=== PATIENT | female | born 1940 | race Caucasian/White ===

== ENCOUNTER 2021-01-04 16:52 | Inpatient (IN) | payer MEDICARE, OTHER, SELFPAY ==
--- NOTE | 2021-01-04 | CTR_ITS ---
PROCEDURE INFORMATION: Exam: CT Head Without Contrast Exam date and time: 01/04/2021 5:58 PM Age: 80 years old Clinical indication: Injury or trauma; Fall; Blunt trauma (contusions or hematomas) TECHNIQUE: Imaging protocol: Computed tomography of the head without contrast. Total images: 189 Radiation optimization: All CT scans at this facility use at least one of these dose optimization techniques: automated exposure control; mA and/or kV adjustment per patient size (includes targeted exams where dose is matched to clinical indication); or iterative reconstruction. COMPARISON: No relevant prior studies available. RADIATION DOSE METRICS: Total DLP (mGy-cm): 776.75 FINDINGS: Brain: No evidence of active or acute intracranial pathologic process, hemorrhage, or trauma. No visible cerebral edema. No mass effect. No midline shift. Cerebral and cerebellar atrophy with ventricular dilatation slightly greater than that anticipated for patient's chronological age. Mild small vessel ischemic disease with senile periventricular leukomalacia. Cerebral ventricles: No ventriculomegaly. Bones/joints: Unremarkable. No acute fracture. Paranasal sinuses: Visualized sinuses are unremarkable. No fluid levels. Mastoid air cells: Visualized mastoid air cells are well aerated. Soft tissues: Unremarkable. CT/CT head wo con* [id number] IMPRESSION: No evidence of active or acute intracranial pathologic process, hemorrhage, or trauma. Radiation Dose CTDIVOL = (mGy): DLP = 776.75 (mGy-cm)
[2021-01-04 17:11] VITALS: BP 145/75; PULSE 94; RESP 16; TEMP 36.8; O2SAT 92; BMI 30.5
[2021-01-04 17:22] VITALS: BP 145/75; PULSE 72; RESP 16; O2SAT 97
--- NOTE | 2021-01-04 17:28 | CTR_ITS ---
PROCEDURE INFORMATION: Exam: CT Maxillofacial Without Contrast Exam date and time: 01/04/2021 5:36 PM Age: 80 years old Clinical indication: Injury or trauma; Fall; Blunt trauma (contusions or hematomas); Nose TECHNIQUE: Imaging protocol: Computed tomography images of the face without contrast. Total images: 257 Radiation optimization: All CT scans at this facility use at least one of these dose optimization techniques: automated exposure control; mA and/or kV adjustment per patient size (includes targeted exams where dose is matched to clinical indication); or iterative reconstruction. COMPARISON: No relevant prior studies available. RADIATION DOSE METRICS: Total DLP (mGy-cm): 703.9 FINDINGS: Orbital cavity: Orbits are normal. Globes are unremarkable. No visible orbital trauma. Bones/joints: No visible facial bone fracture. No visible nasal fracture. 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 Paranasal sinuses: Normal. No air-fluid levels. Soft tissues: Unremarkable. CT/CT facial bones wo con* [id number] IMPRESSION: No acute findings. Radiation Dose CTDIVOL = (mGy): DLP = 703.9 (mGy-cm)
--- NOTE | 2021-01-04 17:28 | XRR_ITS ---
PROCEDURE INFORMATION: Exam: XR Left Elbow Exam date and time: 01/04/2021 5:38 PM Age: 80 years old Clinical indication: Injury or trauma; Fall; Blunt trauma (contusions or hematomas); Elbow; Left TECHNIQUE: Imaging protocol: XR Left elbow. Views: 3 or more views. Total images: 3 COMPARISON: No relevant prior studies available. FINDINGS: Bones/joints: Anterior displaced supracondylar fracture distal left humerus. Maximum anterior displacement 14 mm. No impaction. Associated joint effusion. Moderate primary osteoarthritis. Osteopenia/osteoporosis. Soft tissues: Soft tissue swelling. No visible soft tissue emphysema or radiopaque foreign body. XR/XR elbow LT min 3V* [id number] IMPRESSION: Anterior displaced supracondylar fracture distal left humerus.
--- NOTE | 2021-01-04 17:30 | ED_ITS ---
HPI - Fall General: Chief Complaint: Fall Stated Complaint: FALL, FACE & ELBOW INJURY Time Seen by Provider: 01/04/21 17:25 Source: patient Mode of arrival: ambulatory Limitations: no limitations History of Present Illness: MD complaint: fall Onset (ago): hour(s) (3) Fall from: standing (Unloading groceries) Fall witnessed: no Place fall occurred: home Loss of consciousness: None Prolonged down time: no Symptoms prior to fall: none Context: tripped/slipped (Tripped on dog leash) Location of injury: face (Small laceration to the bridge of nose bruising present) Location of injury - extremities: Left: elbow (Hematoma/tenderness) Severity: mild Associated symptoms-after fall: Reports no associated symptoms Review of Systems General: Reports: 10 or more systems reviewed and unremarkable except in HPI and below Musc: Reports: extremity pain and extremity swelling Skin/Breast: Reports: new lesions Physical Exam Const: COMMON NORMALS: no acute distress, patient oriented x3, healthy appearing, alert and well nourished GENERAL APPEARANCE: cooperative, comfortable and well kempt HENMT: COMMON NORMALS: hearing grossly normal bilaterally and Normal nasal mucous membranes and turbinates present HEAD & SCALP: normal to inspection HEAD IMAGES: 1. Bruising and laceration present NOSE: Normal nares present and Normal nasal mucous membranes and turbinates present Eye: COMMON NORMALS: Equal, round and reactive pupils present GENERAL EYE: appearance normal, both eyes and all related structures PUPIL: Yes Equal, round and reactive pupils present Neck/C-Spine: COMMON NORMALS: full ROM GENERAL: Yes normal visual inspection Lymph: LYMPHATIC: no lymphadenopathy noted Resp: COMMON NORMALS: normal respiratory effort, No retractions, No use of accessory muscles and clear to auscultation bilaterally AUSCULTATION: clear to auscultation bilaterally Cardio: COMMON NORMALS: regular rhythm, S1 normal heart sound present and S2 normal heart sound present RHYTHM: regular rhythm HEART SOUNDS: S1 normal heart sound present and S2 normal heart sound present GI: COMMON NORMALS: Normal to inspection, nondistended, normoactive bowel sounds present : COMMON NORMALS: Yes no CVA tenderness BLADDER/KIDNEY EXAM: Yes no CVA tenderness Back/Pelvis: COMMON NORMALS: no CVA tenderness, thoracic and lumbar spine normal to inspection and no thoracic nor lumbar tenderness Extremity: GENERAL: Yes normal exam except as noted LEFT UPPER EXTREMITY: Yes elbow joint Left elbow: Yes inspection (Bruising) and Yes ROM (Limited due to pain) Neuro: COMMON NORMALS: patient oriented x3 SENSORIUM/ORIENTATION: Yes alert Psych: COMMON NORMALS: mental status grossly normal APPEARANCE: Yes well kempt Skin: TRAUMA: laceration (Bridge of nose) linear Course ED course: Unloading groceries from the car patient states dog was on a leash, and tripped. Landed with elbow extended. Laceration present on bridge of nose, bleeding controlled. Plan for CT c-spine, and facial bones, with XR-Lt elbow. Reevaluation(s): Reevaluation #1: Neurologically intact, patient has no complaint of pain at this time. Discussed pain management with her and she does not wish to take anything at this time. Plan to admit to hospitalist. Time: 19:01 Reevaluation #2: Laceration of nose repaired with dermabond. Site was cleansed and irrigated prior to repair. Time: 19:21 Vital Signs: Vital signs: Vital Signs Temperature 98.2 F 01/04/21 17:11 Pulse Rate 72 01/04/21 17:22 Respiratory Rate 16 01/04/21 17:22 Blood Pressure 145/75 01/04/21 17:22 Pulse Oximetry 97 01/04/21 17:22 MDM - Fall MDM Narrative: Medical decision making narrative: Discussed Xray results with Will admit to Hospitalist with plans to surgically repair. Imaging Data^: Xray Ortho: Attestation: I personally reviewed and interpreted this imaging study as follows: Radiologist's impression: Anterior displaced supracondylar fracture distal left humerus. Discharge Plan Discharge Patient Disposition: Admitted As Inpatient Clinical Impression: Supracondylar fracture of left humerus Qualifiers: Encounter type: initial encounter Fracture type: closed Qualified Code(s): S42.412A - Displaced simple supracondylar fracture without intercondylar fra cture of left humerus, initial encounter for closed fracture Condition: Stable Coding Level of Care Code ED Discharge Specialist for Zeyad Fwbinu Exam Comprehensive
--- NOTE | 2021-01-04 17:34 | CTR_ITS ---
PROCEDURE INFORMATION: Exam: CT Cervical Spine Without Contrast Exam date and time: 01/04/2021 5:36 PM Age: 80 years old Clinical indication: Injury or trauma; Fall; Blunt trauma TECHNIQUE: Imaging protocol: Computed tomography images of the cervical spine without contrast. Total images: 273 Radiation optimization: All CT scans at this facility use at least one of these dose optimization techniques: automated exposure control; mA and/or kV adjustment per patient size (includes targeted exams where dose is matched to clinical indication); or iterative reconstruction. COMPARISON: No relevant prior studies available. RADIATION DOSE METRICS: Total DLP (mGy-cm): 343.69 FINDINGS: Bones/joints: No acute fracture. Marked facet arthrosis. Degenerative disease with spondylosis deformans C5, C6, and to a less significant degree C7. Discs/Spinal canal/Neural foramina: No significant disc protrusion. No severe spinal canal stenosis. Right neural foraminal narrowing C4/C5 secondary to facet arthrosis. Left neural foraminal stenosis C5/C6. Lungs: Lung apices are normal. Soft tissues: Unremarkable for age. CT/CT cervical spin wo con* [id number] IMPRESSION: No acute findings. Radiation Dose CTDIVOL = (mGy): DLP = 343.69 (mGy-cm)
--- NOTE | 2021-01-04 18:49 | ECG_ITS ---
[facility] ED Test Date: 2021-01-04 Pat Name: Christianne Oliva Department: Room: 250 Gender: Female [employer]: : 1940 Requested By: Jamaal Vazquez Order Number: [id number] Shekhar MD: Swapna Erickson M.D. Measurements Intervals [place] Rate: 85 P: 26 AL: 162 QRS: -35 QRSD: 156 T: 51 QT: 399 QTc: 476 Interpretive Statements SINUS RHYTHM MARKED LEFT AXIS DEVIATION [QRS AXIS < -30] LEFT BUNDLE BRANCH BLOCK [120+ ms QRS DURATION, 80+ ms Q/S IN V1/V2, 85+ ms R IN I/aVL/V5/V6] No previous ECG available for comparison Electronically Signed On 01-10-2021 6:58:53 CDT by Swapna Erickson M.D. [id number]
--- NOTE | 2021-01-04 18:49 | XRR_ITS ---
PROCEDURE INFORMATION: Exam: XR Chest Exam date and time: 01/04/2021 6:51 PM Age: 80 years old Clinical indication: Injury or trauma; Fall; Blunt trauma (contusions or hematomas) TECHNIQUE: Imaging protocol: XR of the chest. Views: 1 view. Total images: 1 COMPARISON: No relevant prior studies available. FINDINGS: Lungs: Minimal dependent atelectasis left lung base. Pleural spaces: Unremarkable. No pleural effusion. No pneumothorax. Heart/Mediastinum: Cardiac structures and configuration unremarkable for age. Mild arteriosclerosis. Bones/joints: Unremarkable as visualized. XR/XR chest 1V portable [id number] IMPRESSION: Minimal dependent atelectasis left lung base.
[2021-01-04 20:59] VITALS: BP 132/63; PULSE 85; RESP 18; TEMP 36.9; O2SAT 91
[2021-01-04 21:09] LABS: Basophils # 0.1 10^3/uL (0.0-0.1); Basophils % 0.4 %; Eosinophils % 0.3 %; Hematocrit 36.2 % (37.0-47.0); Hemoglobin 11.6 g/dL (11.5-15.3); Lymphocytes # 1.6 10^3/uL (0.8-4.8); Lymphocytes % 13.6 %; Mean Corpuscular Hemoglobin 29.2 pg (28.0-34.0); Mean Corpuscular Volume 91.2 fL (81-99); Mean Platelet Volume 9.8 fL (7.4-10.4); Monocytes # 0.6 10^3/uL (0.2-0.9); Monocytes % 4.8 %; Neutrophils # 9.42 10^3/uL (1.8-7.7); Neutrophils % 80.4 %; Nucleated Red Blood Cells % 0 %; Platelet Count 249 10^3/cmm (130-400); Red Blood Count 3.97 10^6/uL (4.1-5.3); Red Cell Distribution Width 13.7 % (12.1-15.1); White Blood Count 11.7 10^3/uL (4.0-10.0)
[2021-01-04 21:26] LABS: Alanine Aminotransferase 27 U/L (0-33); Albumin Level 4.2 g/dL (3.5-5.2); Alkaline Phosphatase 52 IU/L (35-105); Anion Gap 14.3 (5-19); Aspartate Amino Transferase 34 U/L (0-32); Blood Urea Nitrogen 18 mg/dL (8-23); Calcium 8.7 mg/dL (8.5-10.5); Carbon Dioxide 26 mmol/L (22-29); Chloride 100 mmol/L (98-107); Globulin 2.9 g/dL (1.3-4.6); Glucose 145 mg/dL (65-115); Osmolality Calculated 286 mOsm/kg (285-295); Potassium 4.3 mmol/L (3.5-5.1); Sodium 136 mmol/L (136-145); Total Bilirubin 0.2 mg/dL (0.15-1.2); Total Protein 7.1 g/dL (6.6-8.7)
[2021-01-04 21:41] LABS: INR 0.98 (0.8-1.2)
--- NOTE | 2021-01-04 22:24 | P.HP_ITS ---
Providers/Chief Complaint Admitting Physician: Yane Boone MD Chief Complaint: FALL, FACE & ELBOW INJURY History of Present Illness Christianne Oliva is a 80 year old female with a PMH HTN who presented with a mechanical fall at home after tripping over her dog leash and landing on concrete floor. Thereafter had nose bleed and pain and inability to move her left arm. Evalutaion in the ER revealed Anterior displaced supracondylar fr acture distal left humerus. no acute fractures of the face, skull or C spine. no rib fracture noted on CXR. Patient is currently in pain,. rates 5/10 in the left arm. No other complaints at this time. ROS negative for fever, chest pain, dyspnea, palpitations, syncope. Review of Systems General: Reports: 10 or more systems reviewed and unremarkable except in HPI and below Const: Denies: fever(s), chills or body aches Eyes: Denies: change in vision, blurry vision or photophobia ENMT: Reports: hoarseness; Denies: throat pain, enlarged tonsils, odynophagia or nasal congestion Card: Denies: chest pain, palpitations, irregular heart rhythm, edema, swelling of feet/ankles, lightheadedness, pre-syncope, dyspnea on exertion or orthopnea Resp: Denies: dyspnea, productive cough, non-productive cough, wheezing, stridor, pain on inspiration, change in phlegm color, hemoptysis or chest congestion GI: Denies: abdominal pain, nausea, vomiting, hematemesis, coffee ground emesis, dysphagia, heartburn, diarrhea, constipation, GI cramping, change in stool character, hematochezia or melena : Denies: flank pain, difficulty voiding, dysuria, urinary frequency, urinary urgency, urinary hesitancy or hematuria Musc: Denies: neck pain, back pain, extremity pain, joint swelling, joint warmth or deformity Neuro: Denies: headache(s), numbness in extremities, weakness in extremities, sensory changes, difficulty walking, frequent falls, dizziness, vertigo, behavioral changes, Slurred speech present or seizure-like activity Psych: Denies: anxiety, depression, suicidal ideation or homicidal ideation Endo: Denies: polyuria, polydipsia, tired all the time, cold intolerance or hot flashes Simón/Lymph: Denies: easy bruising or easy bleeding Medications/Allergies Home Medications Medication Instructions Recorded Confirmed Last Taken Type Bioperine 10 mg PO DAILY@1500 01/04/21 01/04/21 01/04/21 History Curcu Gel Ultra 650 mg PO DAILY@1500 01/04/21 01/04/21 01/04/21 History Vagifem See Rx Instructions .ROUTE .COMPLEX 01/04/21 01/04/21 01/03/21 History Vitamin C 1,000 mg PO DAILY@1500 01/04/21 01/04/21 01/04/21 History aspirin [Cong Chewable Aspirin] 81 mg PO DAILY@1500 01/04/21 01/04/21 01/04/21 History biotin 5,000 mcg PO DAILY@1500 01/04/21 01/04/21 01/04/21 History calcium carbonate-vitamin D3 1 tab PO DAILY@1500 01/04/21 01/04/21 01/04/21 History [Caltrate 600 plus D] cholecalciferol (vitamin D3) 125 mcg PO DAILY@1500 01/04/21 01/04/21 01/04/21 History [Vitamin D3] fexofenadine [Carla] 180 mg PO DAILY@1500 01/04/21 01/04/21 01/04/21 History glucosamine-chondroitin [Osteo 1 tab PO DAILY@1500 01/04/21 01/04/21 01/04/21 History Bi-Flex] hydrochlorothiazide 12.5 mg PO DAILY@1500 01/04/21 01/04/21 01/04/21 History metoprolol tartrate 25 mg PO BID@1500,2200 01/04/21 01/04/21 01/04/21 History wbqjxzcg-gbz-lzzq-FA-lutein 1 tab PO DAILY@1500 01/04/21 01/04/21 01/04/21 History [Centrum Silver Women] omega 8-xip-xyr-fish oil [Fish Oil] 1 cap PO DAILY@1500 01/04/21 01/04/21 01/04/21 History omeprazole magnesium [Prilosec OTC] 20 mg PO DAILY@0900 01/04/21 01/04/21 01/04/21 History potassium chloride 20 meq PO DAILY@1500 01/04/21 01/04/21 01/04/21 History raloxifene 60 mg PO DAILY@1500 01/04/21 01/04/21 01/04/21 History vitamin K2 100 mcg PO DAILY@1500 01/04/21 01/04/21 01/04/21 History Allergies Allergy/AdvReac Type Severity Reaction Status Date / Time cefaclor [From Ceclor] Allergy Unknown Verified 01/04/21 17:15 cephalexin [From Keflex] Allergy Unknown Verified 01/04/21 17:15 PFSH Acute PFSH: Medical History Hypertension Surgical History History of knee replacement S/P hip replacement Social History Smoking and tobacco status: never smoked Alcohol intake: never Vitals/I&O/Wt Last Vital Signs Temp 98.5 F 01/04/21 20:59 Pulse 85 01/04/21 20:59 Resp 18 01/04/21 20:59 BP 132/63 01/04/21 20:59 Pulse Ox 91 01/04/21 20:59 Weight last 48 hrs Weight 75.75 kg Physical Exam Narrative: EXAM NARRATIVE: General: No acute distress, AO x3 HEENT: PERRLA, pupils bilaterally equal and reactive, pallors not present Chest: Normal vesicular breath sounds, no added sounds, equal good air entry bilaterally CVS: S1-S2 regular, no murmurs, no tachycardia, no gallops, no rubs Abdomen: Soft, nontender, no organomegaly, bowel sounds present Neuro: No focal deficits, no facial deformity, AO x3, power 5/5 in all limbs Extremities: Left arm in sling. restricted ROM at left elbow, hematoma and clotted blood over bridge of nose. Data : 01/04/21 20:45 01/04/21 20:45 A&P Assessment and plan (1) Supracondylar fracture of left humerus: after mechanical fall Orthopedics consult placed from ER NPO for possible surgical intervention in the morning Prn morphine and tramadol for pain management Left arm sling in place Status: Acute Qualifiers: Encounter type: initial encounter Fracture type: closed Qualified Code(s): S42.412A - Displaced simple supracondylar fracture without intercondylar fracture of left humerus, initial encounter for closed fracture (2) Hemorrhage from nose: Now resolved Hold home dose of ASA, states on this for primary prevention, no past h/o CAD Status: Acute (3) Hypertension: Currently well controlled Continue home dose of B blockers and HCTZ Status: Acute Qualifiers: Hypertension type: essential hypertension Qualified Code(s): I10 - Essential (primary) hypertension Additional A&P Information CT head, C spine and face without acute fractures Atelactasis left lung base: Add incetive spirometry Full code DVT ppx: SCD sfor now, hold a/c given nasal bleeding and possible surgical intervention Attestations Medical Necessity Statement*: >2midnight anticipated for surgical intervention, pain control and pre/ post op management for supracondylare fracture Coding Level of Care Code Acute 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
[2021-01-04 23:29] VITALS: BP 137/73; PULSE 82; RESP 16; TEMP 36.8; O2SAT 92
[2021-01-04] MEDS: dextrose 5%-sod chloride 0.9% 1,000 ML 50 ML IV (23:50)
[2021-01-05] VITALS (13 sets, daily range): BP systolic 130–181; BP diastolic 55–90; PULSE 77–114; RESP 16–20; TEMP 36.6–37.2; O2SAT 86–96
[2021-01-05 04:55] LABS: Basophils % 0.3 %; Eosinophils % 0.3 %; Hematocrit 33.7 % (37.0-47.0); Hemoglobin 10.6 g/dL (11.5-15.3); Lymphocytes # 1.6 10^3/uL (0.8-4.8); Mean Corpuscular HGB Conc 31.5 g/dL (30.0-36.0); Mean Corpuscular Hemoglobin 29.3 pg (28.0-34.0); Mean Corpuscular Volume 93.1 fL (81-99); Mean Platelet Volume 9.9 fL (7.4-10.4); Monocytes # 0.7 10^3/uL (0.2-0.9); Monocytes % 9.9 %; Neutrophils # 5.01 10^3/uL (1.8-7.7); Nucleated Red Blood Cells % 0 %; Platelet Count 228 10^3/cmm (130-400); Red Blood Count 3.62 10^6/uL (4.1-5.3); Red Cell Distribution Width 13.9 % (12.1-15.1); White Blood Count 7.4 10^3/uL (4.0-10.0)
[2021-01-05 05:14] LABS: Alanine Aminotransferase 22 U/L (0-33); Albumin Level 3.7 g/dL (3.5-5.2); Alkaline Phosphatase 44 IU/L (35-105); Anion Gap 10.8 (5-19); Aspartate Amino Transferase 31 U/L (0-32); Blood Urea Nitrogen 17 mg/dL (8-23); Calcium 8.5 mg/dL (8.5-10.5); Carbon Dioxide 27 mmol/L (22-29); Chloride 103 mmol/L (98-107); Globulin 2.5 g/dL (1.3-4.6); Glucose 123 mg/dL (65-115); Osmolality Calculated 287 mOsm/kg (285-295); Potassium 3.8 mmol/L (3.5-5.1); Sodium 137 mmol/L (136-145); Total Bilirubin 0.2 mg/dL (0.15-1.2); Total Protein 6.2 g/dL (6.6-8.7)
--- NOTE | 2021-01-05 07:10 | P.CONIM_ITS ---
Providers/Reason For Consult Consulting Physican/Specialty*: hospitalist Reason for Consult*: distal humerus fracture Attending Physician: Yane Boone MD History of Present Illness History of Present Illness Christianne Oliva is a 80 year old female with a PMH HTN who presented with a mechanical fall at home after tripping over her dog leash and landing on concrete floor. Thereafter had nose bleed and pain and inability to move her left arm. Evalutaion in the ER revealed Anterior displaced supracondylar fracture distal left humerus. no acute fractures of the face, skull or C spine. no rib fracture noted on CXR. Patient is currently in pain,. rates 5/10 in the left arm. No other complaints at this time. ROS negative for fever, chest pain, dyspnea, palpitations, syncope. Review of Systems General: Reports: 10 or more systems reviewed and unremarkable except in HPI and below Const: Denies: fever(s), chills or body aches Eyes: Denies: change in vision, blurry vision or photophobia ENMT: Reports: hoarseness; Denies: throat pain, enlarged tonsils, odynophagia or nasal congestion Card: Denies: chest pain, palpitations, irregular heart rhythm, edema, swelling of feet/ankles, lightheadedness, pre-syncope, dyspnea on exertion or orthopnea Resp: Denies: dyspnea, productive cough, non-productive cough, wheezing, stridor, pain on inspiration, change in phlegm color, hemoptysis or chest congestion GI: Denies: abdominal pain, nausea, vomiting, hematemesis, coffee ground emesis, dysphagia, heartburn, diarrhea, constipation, GI cramping, change in stool character, hematochezia or melena : Denies: flank pain, difficulty voiding, dysuria, urinary frequency, urinary urgency, urinary hesitancy or hematuria Musc: Reports: extremity swelling; Denies: neck pain, back pain, extremity pain, joint swelling, joint warmth or deformity Skin/Breast: Reports: new lesions Neuro: Denies: headache(s), numbness in extremities, weakness in extremities, sensory changes, difficulty walking, frequent falls, dizziness, vertigo, behavio ral changes, Slurred speech present or seizure-like activity Psych: Denies: anxiety, depression, suicidal ideation or homicidal ideation Endo: Denies: polyuria, polydipsia, tired all the time, cold intolerance or hot flashes Simón/Lymph: Denies: easy bruising or easy bleeding Meds/Allergies Home Medications and Allergies Home Medications Medication Instructions Recorded Confirmed Last Taken Type Bioperine 10 mg PO DAILY@1500 01/04/21 01/04/21 01/04/21 History Curcu Gel Ultra 650 mg PO DAILY@1500 01/04/21 01/04/21 01/04/21 History Vagifem See Rx Instructions .ROUTE .COMPLEX 01/04/21 01/04/21 01/03/21 History Vitamin C 1,000 mg PO DAILY@1500 01/04/21 01/04/21 01/04/21 History aspirin [Cong Chewable Aspirin] 81 mg PO DAILY@1500 01/04/21 01/04/21 01/04/21 History biotin 5,000 mcg PO DAILY@1500 01/04/21 01/04/21 01/04/21 History calcium carbonate-vitamin D3 1 tab PO DAILY@1500 01/04/21 01/04/21 01/04/21 History [Caltrate 600 plus D] cholecalciferol (vitamin D3) 125 mcg PO DAILY@1500 01/04/21 01/04/21 01/04/21 History [Vitamin D3] fexofenadine [Carla] 180 mg PO DAILY@1500 01/04/21 01/04/21 01/04/21 History glucosamine-chondroitin [Osteo 1 tab PO DAILY@1500 01/04/21 01/04/21 01/04/21 History Bi-Flex] hydrochlorothiazide 12.5 mg PO DAILY@1500 01/04/21 01/04/21 01/04/21 History metoprolol tartrate 25 mg PO BID@1500,2200 01/04/21 01/04/21 01/04/21 History ozcoavgi-xnp-hwxi-FA-lutein 1 tab PO DAILY@1500 01/04/21 01/04/21 01/04/21 History [Centrum Silver Women] omega 1-ezd-dkq-fish oil [Fish Oil] 1 cap PO DAILY@1500 01/04/21 01/04/21 01/04/21 History omeprazole magnesium [Prilosec OTC] 20 mg PO DAILY@0900 01/04/21 01/04/21 01/04/21 History potassium chloride 20 meq PO DAILY@1500 01/04/21 01/04/21 01/04/21 History raloxifene 60 mg PO DAILY@1500 01/04/21 01/04/21 01/04/21 History vitamin K2 100 mcg PO DAILY@1500 01/04/21 01/04/21 01/04/21 History Allergies Allergy/AdvReac Type Severity Reaction Status Date / Time cefaclor [From Ceclor] Allergy Unknown Verified 01/04/21 17:15 cephalexin [From Keflex] Allergy Unknown Verified 01/04/21 17:15 Current Medications Current Medications Generic Name Dose Route Start Last Admin Trade Name Freq PRN Reason Stop Dose Admin Dextrose/Sodium Chloride 1,000 mls @ 50 mls/hr 01/04/21 22:30 01/04/21 23:50 Dextrose 5%-Sod Chloride 0.9% IV 50 mls/hr .Q20H BEVERLY Administration PFSH Acute PFSH: Medical History Hypertension Surgical History History of knee replacement S/P hip replacement Social History Smoking and tobacco status: never smoked Alcohol intake: never Vitals/I&O/Wt Last Vital Signs Temp 98.4 F 01/05/21 03:09 Pulse 85 01/05/21 03:09 Resp 16 01/05/21 03:09 BP 157/68 01/05/21 03:09 Pulse Ox 94 01/05/21 03:09 01/04/21 01/05/21 01/05/21 22:59 06:59 14:59 Intake Total 25 / 25 Balance 25 / 25 Weight last 48 hrs Weight 167 lb Physical Exam Narrative: EXAM NARRATIVE: VITAL SIGNS: [] CONSTITUTIONAL: The patient is a normal appearing [] in no apparent distress. GENERAL: Patient in no acute distress. CARDIAC: Regular rate and rhythm. CHEST: Normal inspiratory effort, normal respiratory rate. ABDOMEN: Soft and nontender. SKIN: Clear, warm and intact. NEURO?PSYCH: The patient is alert and oriented to person, place and time. Sensorv /SILT Motor StrengthShoulder abduction C5 5/5Wrist extension C6 5/5Elbow extension C7 5/5Hand Therapy Site Coordinator C8 5/5Finger abduction T15/5 Radial/ Ulnar/ Median n intact LowerSensory (SILT)Motor StrengthHin flexion L2/3Ant/inner thigh 5/5Hip adduction L2/3 5/5Knee extension L4 Lat thigh, 5/5Toe dorsiflexion L5 5/5Ankle dorsiflexion L5/ U05Atkliyq flexion S1 5/5 DTRBleeps 2+Triceps 2+Brachioradialis 2+Patellar 2+Achilles 2+ MUSCULOSKELETAL: [] UPPEREXTREMITIES: The patient had full active ROM in fingers, wrist, elbow, and shoulder. The patient demonstrated ability to fully flex/extend/abduct/adduct fingers, make ok sign, cross 2nd/3rd digits, extend 1st digit fully.. Radial pulse 2+, CR<2 seconds. LOWER EXTREMITIES: Pt has full, active ROM of toes, ankle, knee, and hip. Dorsalis pedis/posterior tibialis pulses 2+, CR<2 seconds. SPINE: Skin warm, dry, intact. 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
--- NOTE | 2021-01-05 07:12 | W.PM.OPSUD ---
Surgery/Procedure H&P Update DATE OF PROCEDURE: January 05, 2021 DATE H&P PERFORMED: 01/05/21 PLANNED PROCEDURE: Operation Date: 01/05/21 15:30 Proposed Procedures p ORIF Distal Humerus(Left) - Robbie Berkowitz DO
[2021-01-05] MEDS: pantoprazole DR 40 mg Tablet PO (07:49)
--- NOTE | 2021-01-05 12:15 | PC.CHAP ---
Pastoral Care Encounter/Spiritual Assessment Type of Contact [] Declined clinical pharmacy manager visit [] Patient/Family/Request visit [] Outpatient visit [] Follow-up visit [] Physician referral [] Code/Alert [xx] Routine visit [] Staff referral [] Actively dying [] Patient sleeping [] Family support [] [] Out of room [] Palliative care [] [] Receiving care in room [] Pre-surgical visit [] Trauma [] Long length of stay [] ICU visit [] Other: Relational/Emotional Strength [xx] Patient feels connected with others/family/visitors/staff [] Distress [] Loneliness/isolation [] Abandonment Spirituality of Patient [xx] Person of [place]az [] Attends Mandaeism of their [place] [xx] Believes in Prayer [xx] Reads Bible or Spiritism materials [] There are Spiritual issues to be addressed Supply Chain Project Manager Interventions [xx] Prayer [xx] Active listening [xx] Non-anxious presence [] Spiritual/emotional support [] Crisis/trauma care [] Spiritual counseling [] Bereavement support [] Provided bereavement packet [xx] Provided Bible/devotional materials [] Provided toy/stuffed animal, coloring book to patient or family member [] Provided Communion [] Anointing/[place] [] Salvation [xx] Completed spiritual assessment [] Other: Impact on Illness or Injury [] Angry [] Fearful [] Anxious [] Often cries [] Exhaustion [] Unable to work [] Unable to attend confucianist [] Unable to walk/stand [] Unable to read [] Unable to drive [] Unable to eat/drink [] Unable to sleep [] Unable to be with family [] Patient intubated [] Other: Summary Patient is having broken elbow surgery before noon and expects to be released by end of today. She is having lots of weekend company and wanted prayer for them also. Time spent with patient 6 minutes
--- NOTE | 2021-01-05 12:34 | PC.NURSE ---
Pt taken to pre-op
--- NOTE | 2021-01-05 13:09 | ANES.PREANE2 ---
Pre-Anesthetic Assessment Pre-Anesthetic Assessment: Height/Weight: Height 1.57 m Weight 75.75 kg Temp Pulse Resp BP Pulse Ox 97.8 F 92 16 165/64 94 01/05/21 12:44 01/05/21 12:44 01/05/21 12:44 01/05/21 12:44 01/05/21 12:44 Preop Diagnosis: Humerus fracture Proposed Procedure: Operation Date: 01/05/21 15:30 Proposed Procedures p ORIF Distal Humerus(Left) - Robbie Berkowitz, DO Familial anesthetic complications: None Was Beta Adelaida taken within 24 hours: Yes Was Clonidine taken within 24 hours: N/A Last intake: Intake Last Liquid Date 01/05/21 Last Liquid Time 00:00 Last Solid Date 01/04/21 Last Solid Time 15:00 Social: Social History: No alcohol and No tobacco Exam: Pre-Anes Outpt Exam: alert, oriented x 3, clear to auscultation bilaterally and regular rate & rhythm Airway: Cervical ROM: WNL MP: 2 Dentition: Full GI: GI: GERD Anesthetic Plan: ASA status: 2 Anesthesia: General and Regional (specify below) Risk of > 500 ml blood loss (7ml/kg in children): No Meds/Allergies Current Medications: Current Medications Generic Name Dose Route Start Last Admin Trade Name Freq PRN Reason Stop Dose Admin Dextrose/Sodium Ch loride 1,000 mls @ 50 ml s/hr 01/04/21 22:30 01/04/21 23:50 Dextrose 5%-Sod Chloride 0.9% IV 50 mls/hr .Q20H BEVERLY Administration Pantoprazole Sodiu m 40 mg 01/05/21 09:00 01/05/21 07:[address] 40 Mg Tablet PO 40 mg DAILY BEVERLY Administration PFSH Anesthesia PFSH: Medical History Hypertension Surgical History History of knee replacement S/P hip replacement Social History Smoking and tobacco status: never smoked Alcohol intake: never Data Anesthesia CBC & Chem 7: 01/05/21 04:10 01/05/21 04:10 Other Labs: Laboratory Results - last 48 hr 01/04/21 01/04/21 01/04/21 20:05 20:05 20:45 WBC Cancelled Corrected WBC Cancelled RBC Cancelled Hgb Cancelled Hct Cancelled MCV Cancelled MCH Cancelled MCHC Cancelled RDW Cancelled Plt Count Cancelled MPV Cancelled Gran % Cancelled Neut % (Auto) Cancelled Lymph % (Auto) Cancelled [place] % (Auto) Cancelled Eos % (Auto) Cancelled Baso % (Auto) Cancelled Neut # (Auto) Cancelled Lymph # (Auto) Cancelled [place] # (Auto) Cancelled Eos # (Auto) Cancelled Baso # (Auto) Cancelled Absolute Gran (auto) Cancelled Nucleated RBC % (auto) Cancelled Nucleated RBCs # Cancelled PT 13.20 INR 0.98 Sodium Cancelled Potassium Cancelled Chloride Cancelled Carbon Dioxide Cancelled Anion Gap Cancelled BUN Cancelled Creatinine Cancelled GFR Calculation Cancelled Glucose Cancelled Calculated Osmolality Cancelled Calcium Cancelled Total Bilirubin Cancelled AST Cancelled ALT Cancelled Alkaline Phosphatase Cancelled Total Protein Cancelled Albumin Cancelled Globulin Cancelled 01/04/21 01/04/21 01/05/21 20:45 20:45 04:10 WBC 11.7 H 7.4 Corrected WBC RBC 3.97 L 3.62 L Hgb 11.6 10.6 L Hct 36.2 L 33.7 L MCV 91.2 93.1 MCH 29.2 29.3 MCHC 32.0 31.5 RDW 13.7 13.9 Plt Count 249 228 MPV 9.8 9.9 Gran % Neut % (Auto) 80.4 68.0 Lymph % (Auto) 13.6 21.0 [place] % (Auto) 4.8 9.9 Eos % (Auto) 0.3 0.3 Baso % (Auto) 0.4 0.3 Neut # (Auto) 9.42 H 5.01 Lymph # (Auto) 1.6 1.6 [place] # (Auto) 0.6 0.7 Eos # (Auto) 0.0 0.0 Baso # (Auto) 0.1 0.0 Absolute Gran (auto) Nucleated RBC % (auto) 0 0 Nucleated RBCs # 0.0 0.0 PT INR Sodium 136 Potassium 4.3 Chloride 100 Carbon Dioxide 26 Anion Gap 14.3 BUN 18 Creatinine 0.9 GFR Calculation Not Reportable Glucose 145 H Calculated Osmolality 286 Calcium 8.7 Total Bilirubin 0.2 AST 34 H ALT 27 Alkaline Phosphatase 52 Total Protein 7.1 Albumin 4.2 Globulin 2.9 01/05/21 04:10 WBC Corrected WBC RBC Hgb Hct MCV MCH MCHC RDW Plt Count MPV Gran % Neut % (Auto) Lymph % (Auto) [place] % (Auto) Eos % (Auto) Baso % (Auto) Neut # (Auto) Lymph # (Auto) [place] # (Auto) Eos # (Auto) Baso # (Auto) Absolute Gran (auto) Nucleated RBC % (auto) Nucleated RBCs # PT INR Sodium 137 Potassium 3.8 Chloride 103 Carbon Dioxide 27 Anion Gap 10.8 BUN 17 Creatinine 0.8 GFR Calculation Not Reportable Glucose 123 H Calculated Osmolality 287 Calcium 8.5 Total Bilirubin 0.2 AST 31 ALT 22 Alkaline Phosphatase 44 Total Protein 6.2 L Albumin 3.7 Globulin 2.5 Cardiac Studies: No Data to Display
--- NOTE | 2021-01-05 13:10 | ANES.PROC ---
Anesthesia Procedures Procedure/Date: 01/05/21 Nerve Block ^: Nerve Block 1: Main Anesthesia: general anesthesia Time Out Performed: No Consent: requested by attending/covering physician, from patient, risks and benefits reviewed and patient agrees to proceed Nerve block location: brachial plexus (supraclavicular) Anesthesia monitors applied: pulse oximetry, EKG, BP cuff and oxygen Nerve block position: semi sitting Anesthetic Used: ropivicaine 0.5% and with decadron (4 mg) Amount of anesthesia used (mL): 30 Ultrasound used to: recognize landmarks, visualize and ID brachial plexus and in supraclavicular region Interscalene/Femoral BLK: 4 stimuplex 21 g needle used for position and inplane approach and visualize local anesthetic spread Injection: neg aspiration of heme Patient Tolerated Procedure: well and no complications Complications: none
[2021-01-05] MEDS: clindamycin 600 MG/50 ML PREMIX 100 MG IV (13:41)
--- NOTE | 2021-01-05 14:25 | SUR.OPER ---
Family Notified Of Patient's Status Via Phone.
--- NOTE | 2021-01-05 14:43 | P.PN_ITS ---
Subjective Subjective: Interval history: Patient was seen and examined this morning, no acute events overnight, currently n.p.o. awaiting ORIF. Pain is well controlled. Vitals/I&O/Wt Last Vital Signs Temp 97.8 F 01/05/21 12:44 Pulse 92 01/05/21 12:44 Resp 16 01/05/21 12:44 BP 165/64 01/05/21 12:44 Pulse Ox 94 01/05/21 12:44 01/04/21 01/05/21 01/05/21 22:59 06:59 14:59 Intake Total 25 / 25 50 / 50 Output Total 300 / 300 Balance 25 / 25 -250 / -250 Weight last 48 hrs Weight 75.75 kg Physical Exam Const: COMMON NORMALS: patient oriented x3 HENMT: OTHER: Nasal bridge bruising present,with minimal hematoma. Cardio: COMMON NORMALS: regular rate, regular rhythm, S1 normal heart sound present, S2 normal heart sound present, No gallops present (Cardio), No murmurs present (Cardio), No rub (Cardio) and Peripheral pulses 2+ throughout RATE: regular rate RHYTHM: regular rhythm HEART SOUNDS: S1 normal heart sound present and S2 normal heart sound present PERIPHERAL PULSES: Peripheral pulses 2+ throughout GI: COMMON NORMALS: Normal to inspection, nondistended, normoactive bowel sounds present, Soft to palpation, non-tender, No hepatosplenomegaly present and no masses AUSCULTATION: Yes normoactive bowel sounds PALPATION: Yes Soft to palpation and Yes No hepatosplenomegaly present RECTAL EXAM: deferred Extremity: COMMON NORMALS: no clubbing, cyanosis or edema and no pedal edema OTHER: Left arm in sling. restricted ROM at left elbow Neuro: COMMON NORMALS: patient oriented x3 Data : 01/05/21 04:10 01/05/21 04:10 A&P Assessment and plan (1) Supracondylar fracture of left humerus: Supracondylar fracture of left humerus after experiencing a mechanical fall , while taking grocery to the home from her car, fell face down.No concern for syncope S/P ORIF for extra articular distal humerus fracture Prn morphine and tramadol Left arm sling in place Status: Acute Qualifiers: Encounter type: initial encounter Fracture type: closed Qualified Code(s): S42.412A - Displaced simple supracondylar fracture without intercondylar fracture of left humerus, initial encounter for closed fracture (2) Hemorrhage from nose: Now resolved Hold home dose of ASA, states on this for primary prevention, no past h/o CAD Status: Acute (3) Hypertension: Currently well controlled Continue home dose of B blockers and HCTZ Status: Acute Qualifiers: Hypertension type: essential hypertension Qualified Code(s): I10 - Essential (primary) hypertension Additional A&P Information CT head, C spine and face without acute fractures Atelactasis left lung base: Add incetive spirometry Full code DVT ppx: SCD sfor now, hold a/c given nasal bleeding and possible surgical intervention Attestations Medical Necessity Statement*: Patient needs to be in hospital for management of supracondylar fracture Coding Level of Care Code Acute Instructional Support Specialist for Zeyad Fwbinu Diagnoses Supracondylar fracture of left humerus S42.412A Encounter type: initial encounter Fracture type: closed Hemorrhage from nose R04.0 Hypertension I10 Hypertension type: essential hypertension
--- NOTE | 2021-01-05 16:00 | PM.OP ---
Operative Report Date of procedure: January 05, 2021 Pre-op Diagnosis: distal Humerus fracture extra articular Post-op diagnosis: same Procedure Done: ORIF extra articular distal humerus fracture Surgeon: Robbie Berkowitz Anesthesia: General Estimated blood loss (mL): 30 Condition: stable Disposition: PACU Procedure: ORIF extra articular distal humerusfracture Patient is brought to the operative suite after undergoing anesthesia was placed in the lateral cubitus position all areas impingement were well-padded. Skin is is made over the posterior aspect of the distal humerus. Ulnar nerve was identified. The medial lateral gutters were exposed and the fractures were identified. The fracture was reduced lateral plate was placed. There is a direct lateral plate from [employer]. 2 screws were placed distally from the lateral side and then 3 screws proximally. 2 screws were placed distally on the medial side direct medial plate. And 2 screws proximal. AP lateral fluoroscopy ensured that the hardware and fracture preposition. Wounds were irrigated and closed with Vicryl and elsa. Patient was placed in a posterior splint transferred to the PACU in stable condition.
--- NOTE | 2021-01-05 16:02 | XR_ITS ---
WS: [id number] C-ARM RADIOGRAPHS LEFT HUMERUS; 3 IMAGES HISTORY: LEFT FX DISTAL HUMERUS COMPARISON: 01/04/2021 Intraoperative plate and screw fixation of the distal humeral fracture. Fracture in good position and alignment. XR/[place] [id number] IMPRESSION: Intraoperative ORIF distal humeral fracture.
[2021-01-05] MEDS: metoprolol tartrate 25 mg Tablet PO (21:12)
[2021-01-06] VITALS: BP 125/55; PULSE 75; RESP 20; TEMP 36.9; O2SAT 96
--- NOTE | 2021-01-06 | SCC_ITS ---
Procedure Done: ORIF extra articular distal humerus fracture 97.5 seconds of fluoroscopic guidance, for a cumulative dose of 1.74 mGy, was provided to Dr. Berkowitz by the radiology department. C-arm images of the LEFT humerus were saved for the patient's permanent record. [facility] CENTERTrudi
[2021-01-06] MEDS: dextrose 5%-sod chloride 0.9% 1,000 ML 50 ML IV (00:13)
[2021-01-06 04:00] VITALS: BP 134/69; PULSE 77; RESP 23; TEMP 36.6; O2SAT 97
[2021-01-06 07:22] VITALS: BP 126/54; PULSE 86; RESP 18; TEMP 36.8; O2SAT 94
[2021-01-06] MEDS: pantoprazole DR 40 mg Tablet PO (08:04)
[2021-01-06 09:05] VITALS: PULSE 93; O2SAT 92
--- NOTE | 2021-01-06 10:28 | P.DS_ITS ---
Discharge Providers Date of Admission: 01/04/21 19:08 Date of Discharge: January 06, 2021 Attending Provider at Admission: Yane Boone MD Attending Provider at Discharge: Sanjeev Garcia MD Diagnoses at Discharge Discharge Diagnosis (1) Supracondylar fracture of left humerus: Status: Acute Qualifiers: Encounter type: initial encounter Fracture type: closed Qualified Code(s): S42.412A - Displaced simple supracondylar fracture without intercondylar fracture of left humerus, initial encounter for closed fracture (2) Hemorrhage from nose: Status: Acute (3) Hypertension: Status: Acute Qualifiers: Hypertension type: essential hypertension Qualified Code(s): I10 - Essential (primary) hypertension Reason for Visit Reason for Visit: FALL, FACE & ELBOW INJURY Hospital Course Hospital Course a 80 year old female with a PMH HTN who presented with a mechanical fall at home after tripping over her dog leash and landing on concrete floor. Thereafter had nose bleed and pain and inability to move her left arm. Evalutaion in the ER revealed Anterior displaced supracondylar fracture distal left humerus. no acute fractures of the face, skull or C spine. no rib fracture noted on CXR. CT head without contrast, CT face, CT C-spine: Failed to show any acute pathology. She was admitted for the management of left distal supracondylar fracture of humerus: S/p ORIF for extra articular distal humerus fracture.Hemorrhage from nose aspirin was transiently held, it was resumed on discharge. Blood pressure was well controlled she was continued on home beta-aminata and hydrochlorothiaz carrie. She responded well to the above medical management and is being discharged in stable condition.She will continue to follow orthopedic as an outpatient. Physical Exam Const: COMMON NORMALS: patient oriented x3 HENMT: OTHER: Nasal bridge bruising present,with minimal hematoma. Cardio: COMMON NORMALS: regular rate, regular rhythm, S1 normal heart sound present, S2 normal heart sound present, No gallops present (Cardio), No murmurs present (Cardio), No rub (Cardio) and Peripheral pulses 2+ throughout RATE: regular rate RHYTHM: regular rhythm HEART SOUNDS: S1 normal heart sound present and S2 normal heart sound present PERIPHERAL PULSES: Peripheral pulses 2+ throughout GI: COMMON NORMALS: Normal to inspection, nondistended, normoactive bowel sounds present, Soft to palpation, non-tender, No hepatosplenomegaly present and no masses AUSCULTATION: Yes normoactive bowel sounds PALPATION: Yes Soft to palpation and Yes No hepatosplenomegaly present RECTAL EXAM: deferred Extremity: COMMON NORMALS: no clubbing, cyanosis or edema and no pedal edema OTHER: Left arm in sling. restricted ROM at left elbow Neuro: COMMON NORMALS: patient oriented x3 Discharge Data Data Completed and Pending: Completed Studies During Hospitalization Category Date Time Status CT cervical spin wo con* 40332 Urge nt Cat Scan 01/04/21 17:[address] facial bones w o con* [id number] Urgen t Cat Scan 01/04/21 17:[address] head wo con* 7 0450 Urgent Cat Scan 01/04/21 Completed XR chest 1V humaira ble [id number] Urgent Exams 01/04/21 18:49 Completed XR elbow LT min 3 V* [id number] Urgent Exams 01/04/21 17:28 Completed XR humerus LT 730 60 Routine Exams 01/05/21 16:02 Completed Pending at discharge Category Date Time Status C-arm Fluoroscopy [id number] Routine Exams 01/05/21 13:43 Taken Vitals: Last Vital Signs Temp 98.3 F 01/06/21 07:22 Pulse 93 01/06/21 09:05 Resp 18 01/06/21 07:22 BP 126/54 01/06/21 07:22 Pulse Ox 92 01/06/21 09:05 Discharge Plan Discharge Patient Disposition: Home Condition: Stable Prescriptions: New hydrocodone-acetaminophen 5-325 mg tablet 1 - 2 tab PO .Q4-6H Qty: 40 RF: 0 Continued fexofenadine 180 mg Tablet 180 mg PO DAILY@1500 RF: 0 Cong Chewable Aspirin 81 mg Tablet,Chewable 81 mg PO DAILY@1500 RF: 0 raloxifene 60 mg tablet 60 mg PO DAILY@1500 RF: 0 Prilosec OTC 20 mg Tablet,Delayed Release (Dr/Ec) 20 mg PO DAILY@0900 RF: 0 metoprolol tartrate 25 mg tablet 25 mg PO BID@1500,2200 RF: 0 Centrum Silver Women 8 mg iron-400 mcg-300 mcg Tablet 1 tab PO DAILY@1500 RF: 0 Caltrate 600 plus D 600 mg (1,500 mg)-800 unit Tablet,Chewable 1 tab PO DAILY@1500 RF: 0 potassium chloride 20 mEq Tablet Extended Release 20 meq PO DAILY@1500 RF: 0 Vitamin C 1,000 mg PO DAILY@1500 RF: 0 Osteo Bi-Flex 250-200 mg Tablet 1 tab PO DAILY@1500 RF: 0 hydrochlorothiazide 12.5 mg Tablet 12.5 mg PO DAILY@1500 RF: 0 Vitamin D3 125 mcg (5,000 unit) Tablet 125 mcg PO DAILY@1500 RF: 0 Fish Oil 1,200 (144-216) mg Capsule 1 cap PO DAILY@1500 RF: 0 vitamin K2 100 mcg Capsule 100 mcg PO DAILY@1500 RF: 0 Bioperine 10 mg PO DAILY@1500 RF: 0 Curcu Gel Ultra 650 mg PO DAILY@1500 RF: 0 Vagifem See Rx Instructions .ROUTE .COMPLEX RF: 0 biotin 5,000 mcg PO DAILY@1500 RF: 0 Discharge Orders: Discharge Order (Routine); Ordered 01/06/21 Ordered By: Sanjeev Garcia Referrals: Robbie Berkowitz DO [Physician] - 2 weeks (Please contact Dr. Berkowitz's office Friday morning to schedule an appointment within 2 weeks. ) Discharge Diet: Regular Patient Instructions: Hydrocodone/Acetaminophen (By mouth), Elbow Fracture in Adults (GEN), Opioid Safety Activity Restrictions/Additional Instructions: You are being discharged from the hospital today during which time you have been under the care of Dr. Berkowitz. You had a left distal humerus fracture fracture. You were treated for this injury with open reduction internal fixation of left distal humerus fracture. You may resume you normal diet (including any special diets as directed by your primary doctor) as well as your home medications. You should follow up with you primary doctor if you have any questions regarding medication you took prior to your stay in the hospital. You may take your pain medication as prescribed. After the first few days, take your pain medication as needed. Do not drive or drink alcohol while taking your pain medication. Always keep your surgical incision/dressing clean and dry. If you experience increasing pain at your incision site, redness, swelling, increasing discharge, foul odors, or fevers (greater than 100.4), night sweats or chills you should call the office at the above number. If you feel this is an emergency you should be evaluated in the Emergency Department of a nearby hospital. Orthopedic Patient Instructions Summary: Weight Bearing: Nonweightbearing left upper extremity Activity: As tolerated with nonweightbearing left upper extremity. Diet: Regular. Splint Care: Keep splint clean and dry. Cover with a plastic bag for bathing. Wound Care: Keep dressing clean and dry. Anticoagulation: Continue aspirin Pain Medication: Take only as needed. Ice, rest and elevation will be of great benefit. Please plan to follow-up wlth Dr Berkowitz in 2 weeks. You will need to call the clinic [phone] to schedule this visit. Thank you far allowing me to participate in your care. Do not hesitate to call the office with any questions or concerns. Discharge Attestations Time Spent in Discharge Care*: less than 30 min Specific Discharge Activities: educating patient, educating and/or supporting family/caregiver, discussing with pcp/other providers, discussing with mattress spring encaser/social workers/dc planners, documenting/other paperwork and evaluating patient/reviewing data Status at Discharge: Cognitive status at discharge: cognitively intact , Behavioral status at discharge: cooperative , Functional status at discharge: independent ambulation Overall status at discharge: patient is back to base line Quality Metrics Clinical Quality Measures During this hospital stay, did patient experience: None Coding Level of Care Code Acute [facility] note Diagnoses Supracondylar fracture of left humerus S42.412A Encounter type: initial encounter Fracture type: closed Hemorrhage from nose R04.0 Hypertension I10 Hypertension type: essential hypertension
[2021-01-06 12:00] VITALS: BP 146/65; PULSE 91; RESP 18; TEMP 37.1; O2SAT 91
--- NOTE | 2021-01-06 12:05 | PC.PT ---
Per nurse, patient was up walking in room independently this morning. Upon therapist arrival, patient did not have any concerns or questions regarding gross motor skills. She lives alone and does not use AD for gait. Her recent fall was due to tripping over dog leash when bringing in groceries. She states she will be discharged later today and resume therapy after discharge. Therapist did not observe concerns and deems patient is safe to discharge home, pending OT evaluation.
[2021-01-06 13:18] VITALS: BP 146/65; PULSE 91; RESP 18; TEMP 37.1; O2SAT 91
== END 2021-01-06 12:35 | disposition home health service (06) | DRG 494 ==
LOC: ER 19:07 → MEDSURG 19:53
PROVIDERS: Emergency Medicine; Orthopaedic Surgery; Admitting Provider Student in an Organized Health Care Education/Training Program; Emergency Provider Nurse Practitioner Family; Visit Provider Internal Medicine
PROC: 0PSG04Z Reposition Left Humeral Shaft with Internal Fixation Device, Open Approach (ICD-10-PCS; principal; 2021-01-05 15:00)
DX: S42.412A Displaced simple supracondylar fracture without intercondylar fracture of left humerus, initial encounter for closed fracture (principal); W01.0XXA Fall on same level from slipping, tripping and stumbling without subsequent striking against object, initial encounter; I10 Essential (primary) hypertension; Z96.659 Presence of unspecified artificial knee joint; Z96.649 Presence of unspecified artificial hip joint; R04.0 Epistaxis; Z79.82 Long term (current) use of aspirin
CPT/HCPCS: 36415; 64415; 70450; 70486; 71045; 72125; 73060; 73080; 76000; 76942; 80053; 85025; 85610; 93005; 97165; C1713; J1100; J2405; J2710; J2795; J3010; J3490

== ENCOUNTER → 2021-02-22 09:37 | Outpatient (BNVA) | payer MEDICARE, OTHER, SELFPAY | PROVIDERS: Visit Provider Orthopaedic Surgery | DX: Z48.89 Encounter for other specified surgical aftercare (principal) | CPT/HCPCS: 73080 ==

== ENCOUNTER → 2021-04-19 10:30 | Outpatient (BNVA) | payer MEDICARE, OTHER, SELFPAY | PROVIDERS: Visit Provider Orthopaedic Surgery | DX: Z48.89 Encounter for other specified surgical aftercare (principal); S42.412A Displaced simple supracondylar fracture without intercondylar fracture of left humerus, initial encounter for closed fracture; X58.XXXA Exposure to other specified factors, initial encounter | CPT/HCPCS: 73080 ==

== ENCOUNTER → 2023-05-07 08:55 | Outpatient (BNVA) | payer MEDICARE, OTHER, SELFPAY | PROVIDERS: Visit Provider Podiatrist Foot & Ankle Surgery | DX: L60.8 Other nail disorders (principal); I73.9 Peripheral vascular disease, unspecified; M20.41 Other hammer toe(s) (acquired), right foot; M20.42 Other hammer toe(s) (acquired), left foot; L60.3 Nail dystrophy | CPT/HCPCS: 11721; 99203 ==

== ENCOUNTER → 2023-07-14 08:02 | Outpatient (BNVA) | payer MEDICARE, OTHER, SELFPAY | PROVIDERS: Visit Provider Podiatrist Foot & Ankle Surgery | DX: I73.9 Peripheral vascular disease, unspecified (principal); M20.41 Other hammer toe(s) (acquired), right foot; M20.42 Other hammer toe(s) (acquired), left foot; L60.3 Nail dystrophy; L84 Corns and callosities | CPT/HCPCS: 11056; 11721 ==

== ENCOUNTER → 2023-09-17 14:21 | Outpatient (BNVA) | payer MEDICARE, OTHER, SELFPAY | PROVIDERS: PCP Family Medicine Adult Medicine; Visit Provider Podiatrist Foot & Ankle Surgery | DX: L60.3 Nail dystrophy; L84 Corns and callosities; I73.9 Peripheral vascular disease, unspecified | CPT/HCPCS: 11056; 11721 ==

== ENCOUNTER → 2023-11-19 14:23 | Outpatient (BNVA) | payer MEDICARE, OTHER, SELFPAY | PROVIDERS: PCP Family Medicine Adult Medicine; Visit Provider Podiatrist Foot & Ankle Surgery | DX: L60.3 Nail dystrophy; L84 Corns and callosities; I73.9 Peripheral vascular disease, unspecified | CPT/HCPCS: 11056; 11721 ==

== ENCOUNTER → 2024-01-21 11:30 | Outpatient (BNVA) | payer MEDICARE, OTHER, SELFPAY | PROVIDERS: PCP Family Medicine Adult Medicine; Visit Provider Podiatrist Foot & Ankle Surgery | DX: L60.8 Other nail disorders (principal); L60.3 Nail dystrophy; L84 Corns and callosities; I73.9 Peripheral vascular disease, unspecified | CPT/HCPCS: 11056; 11721 ==

== ENCOUNTER → 2024-03-24 11:17 | Outpatient (BNVA) | payer MEDICARE, OTHER, SELFPAY | PROVIDERS: PCP Family Medicine Adult Medicine; Visit Provider Podiatrist Foot & Ankle Surgery | DX: L60.3 Nail dystrophy; L84 Corns and callosities; I73.9 Peripheral vascular disease, unspecified | CPT/HCPCS: 11056; 11721 ==

== ENCOUNTER → 2024-05-26 15:15 | Outpatient (BNVA) | payer MEDICARE, OTHER, SELFPAY | PROVIDERS: PCP Family Medicine Adult Medicine; Visit Provider Podiatrist Foot & Ankle Surgery | DX: L60.3 Nail dystrophy (principal); L84 Corns and callosities; I73.9 Peripheral vascular disease, unspecified | CPT/HCPCS: 11056; 11721 ==

== ENCOUNTER → 2024-07-28 12:54 | Outpatient (BNVA) | payer MEDICARE, OTHER, SELFPAY | PROVIDERS: PCP Family Medicine Adult Medicine; Visit Provider Podiatrist Foot & Ankle Surgery | DX: L60.3 Nail dystrophy (principal); L84 Corns and callosities; I73.9 Peripheral vascular disease, unspecified | CPT/HCPCS: 11056; 11721 ==

== ENCOUNTER → 2024-09-22 15:00 | Outpatient (BNVA) | payer MEDICARE, OTHER, SELFPAY | PROVIDERS: PCP Family Medicine; Visit Provider Podiatrist Foot & Ankle Surgery | DX: L60.3 Nail dystrophy (principal); L84 Corns and callosities; I73.9 Peripheral vascular disease, unspecified | CPT/HCPCS: 11056; 11721 ==

== ENCOUNTER → 2024-11-17 14:11 | Outpatient (BNVA) | payer MEDICARE, OTHER, SELFPAY | PROVIDERS: PCP Family Medicine; Visit Provider Podiatrist Foot & Ankle Surgery | DX: I73.9 Peripheral vascular disease, unspecified (principal); L60.3 Nail dystrophy; L84 Corns and callosities | CPT/HCPCS: 11056; 11721 ==

== ENCOUNTER → 2024-12-20 10:09 | Outpatient (BNVA) | payer MEDICARE, OTHER, SELFPAY | PROVIDERS: PCP Family Medicine; Visit Provider Podiatrist Foot & Ankle Surgery | DX: L60.3 Nail dystrophy (principal); L84 Corns and callosities; I73.9 Peripheral vascular disease, unspecified; M19.071 Primary osteoarthritis, right ankle and foot | CPT/HCPCS: 73630; 99214 ==

== ENCOUNTER → 2025-01-19 13:00 | Outpatient (BNVA) | payer MEDICARE, OTHER, SELFPAY | PROVIDERS: PCP Family Medicine; Visit Provider Podiatrist Foot & Ankle Surgery | DX: I73.9 Peripheral vascular disease, unspecified (principal); L60.8 Other nail disorders; L84 Corns and callosities; L60.3 Nail dystrophy; M19.071 Primary osteoarthritis, right ankle and foot | CPT/HCPCS: 11055; 11721 ==

== ENCOUNTER → 2025-03-21 14:07 | Outpatient (BNVA) | payer MEDICARE, OTHER, SELFPAY | PROVIDERS: PCP Family Medicine; Visit Provider Podiatrist Foot & Ankle Surgery | DX: I73.9 Peripheral vascular disease, unspecified (principal); L60.3 Nail dystrophy; L84 Corns and callosities; L60.8 Other nail disorders; M19.071 Primary osteoarthritis, right ankle and foot | CPT/HCPCS: 11056; 11721 ==

== ENCOUNTER → 2025-05-23 13:58 | Outpatient (BNVA) | payer MEDICARE, OTHER, SELFPAY | PROVIDERS: PCP Family Medicine; Visit Provider Podiatrist Foot & Ankle Surgery | DX: I73.9 Peripheral vascular disease, unspecified (principal); L60.3 Nail dystrophy; L84 Corns and callosities; M19.071 Primary osteoarthritis, right ankle and foot | CPT/HCPCS: 11056; 11721; 99213 ==

== ENCOUNTER → 2025-07-25 14:33 | Outpatient (BNVA) | payer MEDICARE, OTHER, SELFPAY | PROVIDERS: PCP Family Medicine; Visit Provider Podiatrist Foot & Ankle Surgery | DX: I73.9 Peripheral vascular disease, unspecified (principal); L60.3 Nail dystrophy; L84 Corns and callosities; L60.8 Other nail disorders | CPT/HCPCS: 11056; 11721 ==